=== PATIENT | female | born 1955 | race Caucasian/White ===

== ENCOUNTER 2016-05-27 12:45 | Outpatient (CLI) | END 2016-05-27 12:46 | disposition home or self-care (01) | LOC: LAB 12:45 | PROVIDERS: ATTEND Internal Medicine Endocrinology, Diabetes & Metabolism | DX: E04.9 Nontoxic goiter, unspecified (principal) | CPT/HCPCS: 36415; 84439; 84443 ==

== ENCOUNTER 2017-06-25 12:03 | Outpatient (CLI) ==
--- NOTE | 2017-06-25 15:29 | US ---
EXAM: Thyroid ultrasound HISTORY: Multinodular goiter TECHNIQUE: Felipe scale and color Doppler imaging of the thyroid gland was performed. Comparison 02/06/2016. FINDINGS: The right thyroid lobe measures 4.3 cm in length, 1.2 cm AP, 1.3 cm transverse. There is a hypoechoic oval nodule seen within the upper pole of the right thyroid lobe measuring up to 1.2 cm. No abnormal calcifications are seen. There is no significant internal blood flow. There is a smal ler nodule seen within the inferior pole of the right thyroid lobe measuring up to 3.6 mm maximum. The left thyroid lobe measures 3.7 cm in length, 1 cm AP, 8.4 mm transverse. There is a small oval n odule seen within the inferior pole of the left thyroid lobe measuring up to 9 mm maximum. Additiona l three smaller nodules are identified within the upper and mid pole of the left thyroid lobe measuri ng up to 3 mm maximum. The findings are not significant change when compared to previous study. IMPRESSION: Stable appearance of the bilateral thyroid nodules. The most prominent nodule is identi fied within the upper pole of the right thyroid lobe measuring up to 1.2 cm. A 1-year follow-up thyr oid ultrasound can be performed.
== END 2017-06-25 12:04 | disposition home or self-care (01) ==
LOC: RAD 12:03
PROVIDERS: ATTEND Internal Medicine Endocrinology, Diabetes & Metabolism
DX: E04.2 Nontoxic multinodular goiter (principal)